=== PATIENT | male | born 1955 | race Caucasian/White ===

== ENCOUNTER 2021-07-21 13:33 | Emergency (ER) | payer BC, SELFPAY ==
[2021-07-21] VITALS (8 sets, daily range): BP systolic 117–160; BP diastolic 59–82; PULSE 56–62; RESP 18–24; TEMP 36.1; O2SAT 93–99
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
--- NOTE | ~2021-07-21 | XR_ITS ---
EXAMINATION: XR chest-chest tube insert/pos DATE: 07/21/2021 15:58 INDICATION: Right pneumothorax status post chest tube placement. TECHNIQUE: A single frontal view of the chest was obtained. COMPARISON: Chest radiograph 07/21/2021 FINDINGS: There is extensive gas in right chest wall. Again seen are right-sided rib fractures. There is a new right-sided chest tube along the mediastinum. There are patchy airspace opacities in right lung, likely atelectasis and chest wall attenuation. There may be a small right pleural effusion. No visible pneumothorax. The heart size is normal. IMPRESSION: 1. No visible pneumothorax, but extensive chest wall gas decreases sensitivity. Right-sided chest tub e along the mediastinum. 2. Patchy airspace opacities in right hemithorax, likely a combination of atelectasis and chest wall attenuation. 3. Possible small right pleural effusion. Reviewed, dictated and finalized at location A. IMPRESSION: 1. No visible pneumothorax, but extensive chest wall gas decreases sensitivity. Right-sided chest tube along the mediastinum. 2. Patchy airspace opacities in right hemithorax, likely a combination of atele ctasis and chest wall attenuation. 3. Possible small right pleural effusion.
--- NOTE | 2021-07-21 13:56 | ECG_ITS ---
Measurements Intervals [place] Rate: 56 P: 40 NC: 159 QRS: 18 QRSD: 98 T: 8 QT: 442 QTc: 429 Interpretive Statements SINUS BRADYCARDIA BORDERLINE ST-T WAVE ABNORMALITY- INFERIOR LEADS BASELINE ARTIFACT- I, II, AVR, V1-V6 BORDERLINE ECG Electronically Signed On 07-21-2021 16:36:25 CDT by Leonard Jimenez D.O.
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
--- NOTE | 2021-07-21 14:37 | PC.NURSE ---
transfer to ed room 5
[2021-07-21 14:49] LABS: Basophils Percent Auto 0.2 % (0.2-1.2); Eosinophils Percent Auto 0.1 % (0-4.4); Hematocrit 43.5 % (42.0-52.0); Hemoglobin 14.3 g/dL (14.0-18.0); Immature Granulocyte Absolute 0.13 K/mm3 (0.00-0.031); Immature Granulocyte Percent A 0.8 % (0-0.5); Lymphocytes Percent Auto 10.1 % (18.3-44.2); Mean Corpuscular HGB Conc 32.9 g/dl (32-36); Mean Corpuscular Hemoglobin 31.4 pg (26-34); Mean Corpuscular Volume 95.6 fl (80-100); Monocytes Absolute Auto 1.1 K/mm3 (0.1-0.6); Monocytes Percent Auto 6.8 % (2.6-8.5); Neutrophils Absolute Auto 13.7 K/mm3 (1.3-6.7); Platelet Count Result 237 k/mm3 (150-375); Red Blood Count 4.55 M/mm3 (4.6-6.20); Red Cell Distribution Width 11.9 % (11.5-14.5); White Blood Count 16.8 K/mm3 (4.5-10.0)
[2021-07-21 15:00] LABS: INR 1.1; Partial Thromboplastin Time 24.6 SECONDS (22.3-36.8); Prothrombin Time 13.7 Seconds (11.1-14.7)
[2021-07-21 15:03] LABS: Anion Gap 9 mmol/L (8-16); Blood Urea Nitrogen 18 mg/dL (9-20); Calcium 8.9 mg/dL (8.4-10.2); Carbon Dioxide 25 mmol/L (22-30); Chloride 104 mmol/L (98-107); Estimated CRCL calculation 78 ml/min; Estimated Glomerular Filt Rate > 60; Glucose 223 mg/dL (65-110); Potassium 3.7 mmol/L (3.4-5.0); Sodium 138 mmol/L (137-145)
[2021-07-21] MEDS: fentaNYL CITRATE INJ (*CRX) 100 MCG/2 ML VIAL 25 MCG IV PUSH (15:14)
[2021-07-21 15:15] LABS: Troponin I < 0.012 ng/mL (0.000-0.034)
--- NOTE | 2021-07-21 15:16 | PC.NURSE ---
EDP at bedside for placement of chest tube, consent obtained prior to procedure.
--- NOTE | 2021-07-21 15:25 | PC.NURSE ---
25mcg fentanyl given per EDP Renato, verbal order at bedside.
--- NOTE | 2021-07-21 15:35 | PC.NURSE ---
50mcg fentanyl given per EDP verbal order.
--- NOTE | 2021-07-21 15:49 | PC.NURSE ---
Per Dr Avelar & Anurag alarcon via [employer]s Trip#[id number] ETA 30min
[2021-07-21] MEDS: MORPHINE SULFATE (*CRX) 4 MG/ML INJ IV PUSH (16:24)
[2021-07-21] MEDS: ONDANSETRON INJ 4 MG/2 ML VIAL IV PUSH (16:24)
== END 2021-07-21 16:20 | disposition short-term general hospital (02) ==
PROVIDERS: Emergency Medicine; Emergency Provider Emergency Medicine
DX: S22.41XA Multiple fractures of ribs, right side, initial encounter for closed fracture (principal); S27.0XXA Traumatic pneumothorax, initial encounter; R73.03 Prediabetes; V17.4XXA Pedal cycle driver injured in collision with fixed or stationary object in traffic accident, initial encounter
CPT/HCPCS: 32551; 36415; 70450; 71046; 71100; 73030; 80048; 84484; 85025; 85610; 85730; 93005; 96374; 96375; 99285; C1729; J2270; J2405; J3010